=== PATIENT | female | born 1945 | race Caucasian/White ===

== ENCOUNTER → 2021-06-30 | Outpatient (CLI) | payer MEDICARE ==
[2021-06-30 16:35] LABS: BASO # 0.04 (0.02-0.10); EOS % 2.2 % (1.0-5.0); HEMATOCRIT 40.2 % (37.0-47.0); LYMPH# 3.13 (1.50-4.00); MEAN CELL VOLUME 94 fl (78-100); MEAN CORPUSCULAR HEMOGLOBIN 30 pg (27-31); MEAN CORPUSCULAR HGB CONC 32 g/dL (33-37); MEAN PLATELET VOLUME 9.3 fl (7.4-10.4); MONO # 0.71 (0.20-0.80); NEU # 5.02 (1.40-6.50); PLATELET COUNT 313 K/mm3 (130-400); RED BLOOD COUNT 4.29 M/mm3 (4.10-5.30); RED CELL DISTRIBUTION WIDTH 12.8 % (11.5-14.5); WHITE BLOOD COUNT 9.1 K/mm3 (4.8-10.8)
[2021-06-30 17:29] LABS: ALBUMIN 4.3 g/dL (3.4-4.8); POTASSIUM 4.4 mmol/L (3.5-5.1)
[2021-06-30 17:31] LABS: TOTAL PROTEIN 6.8 g/dL (6.2-8.1)
[2021-06-30 17:33] LABS: TOTAL BILIRUBIN 0.3 mg/dL (0.2-1.2)
== END ==
LOC: LAB 15:36
PROVIDERS: Family Medicine
DX: Z00.00 Encounter for general adult medical examination without abnormal findings (principal); R16.0 Hepatomegaly, not elsewhere classified; E78.5 Hyperlipidemia, unspecified; E03.9 Hypothyroidism, unspecified; E55.9 Vitamin D deficiency, unspecified

== ENCOUNTER → 2021-06-30 | Outpatient (CLI) | payer MEDICARE | LOC: MAMMO 15:38 | DX: Z12.31 Encounter for screening mammogram for malignant neoplasm of breast (principal) ==

== ENCOUNTER → 2021-07-01 | Outpatient (CLI) | payer MEDICARE | LOC: RAD 12:28 | DX: K22.5 Diverticulum of esophagus, acquired (principal) ==

== ENCOUNTER → 2021-07-09 | Outpatient (CLI) | payer MEDICARE | LOC: CARDLAB 07:46 → CARDREHAB 07:46 → CARDLAB 08:22 | DX: R07.9 Chest pain, unspecified (principal) | CPT/HCPCS: A9500 ==

== ENCOUNTER → 2022-04-11 | Day surgery (SDC) | payer MEDICARE | LOC: MSO 09:11 | DX: K21.9 Gastro-esophageal reflux disease without esophagitis (principal); K29.50 Unspecified chronic gastritis without bleeding; F17.210 Nicotine dependence, cigarettes, uncomplicated | CPT/HCPCS: 00731; J2704; J7120 ==

== ENCOUNTER → 2022-07-08 | Outpatient (CLI) | payer MEDICARE | LOC: LAB 13:17 | DX: R31.21 Asymptomatic microscopic hematuria (principal); R31.29 Other microscopic hematuria ==

== ENCOUNTER → 2022-07-12 | Outpatient (CLI) | payer MEDICARE | LOC: RAD 10:41 | DX: R31.29 Other microscopic hematuria (principal) | CPT/HCPCS: Q9967 ==